=== PATIENT | male | born 1970 | race Caucasian/White ===

== ENCOUNTER 2019-09-13 23:04 | Emergency (ER) | payer MEDICAID, SELFPAY ==
[~2019-09-13] VITALS: Ht 162.6 cm; Wt 72.6 kg
[2019-09-13 23:41] VITALS: BP 133/78
[2019-09-13] MEDS ORDERED: ACETAMINOPHEN EXTRA STRENGTH 500 MG TAB PO ONE (23:45)
[2019-09-13] MEDS ORDERED: ACETAMINOPHEN EXTRA STRENGTH 500 MG TAB ONE (23:45)
== END 2019-09-14 00:30 | disposition home or self-care (01) ==
LOC: MED 23:04
DX: R19.7 Diarrhea, unspecified (principal); Z20.828 Contact with and (suspected) exposure to other viral communicable diseases; R50.9 Fever, unspecified; M79.10 Myalgia, unspecified site
CPT/HCPCS: 99283; U0003

== ENCOUNTER 2022-11-19 22:15 | Emergency (ER) | payer SELFPAY ==
[~2022-11-19] VITALS: Ht 170.2 cm; Wt 81.6 kg
[2022-11-19 22:28] VITALS: BP 143/84; PULSE 80; RESP 18; TEMP 97.4; O2SAT 99
[2022-11-19 23:38] VITALS: BP 143/84; PULSE 80; RESP 18; TEMP 97.4; O2SAT 99
== END 2022-11-19 23:38 | disposition left against medical advice (07) ==
LOC: MED 22:15
DX: R10.9 Unspecified abdominal pain (principal); Z53.21 Procedure and treatment not carried out due to patient leaving prior to being seen by health care provider
CPT/HCPCS: 99281